=== PATIENT | female | born 1945 | race Caucasian/White ===

== ENCOUNTER 2025-04-07 09:14 | Outpatient (AMB) | payer OTHER, SELFPAY ==
--- OUTSIDE RECORDS SUMMARY | 2025-04-07 09:42 | XMS_ITS | Patient Health Record ---
[facility] Address [address] [place] [address] Care Team Providers Care Career Resource Technician Name Role Phone Shawanda Marinelli MD Primary Care Provider Wanda Espinosa Unavailable [phone] Allergies Allergen (clinical drug ingredient) Drug/Non Drug Allergy documented on EMR Reaction Allergy Type Onset Date Status loratadine Clariton (uncoded) afraid of table,charirs, door Allergy Active codeine Codine (uncoded) can't hold water down Allergy Active meperidine Demerol (uncoded) dizziness Allergy A ctive hydrochlorothiazide Htcz (uncoded) afraid of table,chairs,d oor Allergy Active morphine Morphine (uncoded) dizziness Allergy Active acetaminophen / oxycodone Percucet (uncoded) afraid of table, chairs,door,et c Allergy Active atorvastatin Atorvastatin Calcium muscle cramps Drug Allergy Active Reason For Referral No Information Medications Medication SIG (Take, Route, Frequency, Duration) Notes Start Date End Date Status Lisinopril Active Metoprolol Succinate ER Active Atorvastatin Calcium Not-Taking PriLOSEC 20 mg 1 per day Active Social History Tobacco Use: Social History Observation Description Date Details (start date - stop date) Never Smoker NA - NA Tobacco Use/Smoking Question Answer Notes Are you a: nonsmoker Alcohol Screen Question Answer Notes Did you have a drink containing alcohol in the p ast year? No Points 0 Interpretation Negative Tobacco use other than smoking: Question Answer Notes Are you an other tobacco user? 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) Active confirmed Problem PlantarFlexion o f metatarsal of left foot (M21.6X2) Active confirmed Plan Of Treatment Pending Test Test Name Order Date [id number] Destruction, 09-2808/02/2019 [id number] Destruction, 09-2811/08/2019 [id number] Destruction, 09-2802/10/2020 Insurance Providers Payer Name Payer Address Payer Phone Subscriber Number Group Number Insured Name Patient Relationship to Insured Coverage Start Date Coverage End Date [facility] [address] [place] [address] [id number] Kathya Montesinos Self - patient is the insured Medical (General) History Medical History History ICD Code Breast Cancer Heart Disease Palpitations High Blood Pressure Sinusitis Measles Mumps Chicken Pox Joint/Bone implants/screws right eye too th High cholestrol Surgical History Surgery Date(Month/Year) left breast lump 1993 left ear Acoustic neuroma left side diviated 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
--- NOTE | 2025-04-07 09:43 | AM.OFFWIN_ITS ---
Intake Vital Signs 04/07/25 09:45 Height 5 ft 2 in Weight 167 lb 8 oz BMI 30.6 BP 136/60 Blood Pressure Location Rt brachial Position Sitting Pulse 62 Pulse Source Pulse Oximeter Temp 97.6 F Temp Source Oral Pulse Oximetry (%) 97 Oxygen Delivery Method Room Air Intake Visit Reasons: EP Pimple above belly button Patient Tobacco Use Status: Never used Tobacco Scientific Writer Required: No Is last menstrual period known: No Post menopausal: Yes Patient : No Allergies acetaminophen (Percocet) Allergy (Unknown, Verified 01/23/19 00:00) hydrochlorothiazide Allergy (Unknown, Verified 01/23/19 00:00) loratadine (Claritin) Allergy (Unknown, Verified 01/23/19 00:00) meperidine (Demerol) Allergy (Unknown, Verified 01/23/19 00:00) morphine Allergy (Unknown, Verified 01/23/19 00:00) oxycodone (Percocet) Allergy (Unknown, Verified 01/23/19 00:00) prednisone Allergy (Unknown, Verified 01/23/19 00:00) Do you need a note to return to daycare/school/sports/work: No HPI HPI Comments History of Present Illness Details History - The patient is a 79-year-old female pr esenting with evaluation of a lump on the skin. - The lump was initially the size of a h nursing home dollar and was noted to discharge a substance resembling toothpaste upon squeezing. - Further squeezing resulted in a pinkis h discharge, described as similar to a milkshake. - The patient has been squeezing the lum p intermittently, resulting in occ asional discharge of a white substance. - She denies fever, chills, pus, bleedin g, redness, warmth, induration, rashes, or other lesions. Physical Exam General: Cooperative, healthy appearing, comfortable, no acute distress and well developed Orientation: Patient oriented x3 Respiratory: Normal respiratory effort and able to speak in complete sentences. Clear to auscultation bilaterally. No w/r/r noted. Cardiovascular: RRR, no m/r/g noted. Normal S1 and S2 Skin: Small, pin point, non-tender, hard nodule noted in the abdomen under the umbilicus above the suprapubic region. Patient was informed and verbally consented to the use of an ambient scribe for clinic note documentation during this visit [facility] Social History Patient Tobacco Use Status: Never used Tobacco Patient : No Review of Systems Const All systems reviewed & are unremarkable except as noted in HPI and below Physical Exam Vital Signs: Last Vital Signs Temp 97.6 F 04/07/25 09:45 Pulse 62 04/07/25 09:45 BP 136/60 04/07/25 09:45 Pulse Ox 97 04/07/25 09:45 Oxygen Delivery Method Room Air 04/07/25 09:45 BMI result Body Mass Index 30.6 Assessment & Plan Assessment & Plan (1) Abdominal wall lump: Code(s): R22.2 - Localized swelling, mass and lump, trunk Plan Most likely millia vs Epidermal Cyst vs abscess Plan - Advised pt to leave it alone - Does not need antibiotics at this time - Referral to a child care supervisor for possible incision and drainage and biopsy to confirm diagnosis. - Advised to avoid squeezing the cyst to prevent irritation or infection. Coding Level of Care Code Est Pt Level 3 (64101) Diagnoses Abdominal wall lump R22.2
[2025-04-07 09:45] VITALS: BP 136/60; PULSE 62; TEMP 36.4; O2SAT 97; BMI 30.6
== END 2025-04-07 10:52 | disposition home or self-care (01) ==
PROVIDERS: PCP Internal Medicine; Visit Provider Physician Assistant Medical
DX: R22.2 Localized swelling, mass and lump, trunk (principal)